=== PATIENT | female | born 2000 | race Caucasian/White ===

== ENCOUNTER 2021-10-10 11:38 | Emergency (ER) | payer BC ==
[2021-10-10 13:11] VITALS: BP 137/75
[2021-10-10] MEDS ORDERED: BUTALB/ACETAMINOPHEN/CAFFEINE TAB PO ONE (14:16)
[2021-10-10] MEDS ORDERED: ONDANSETRON 4 MG ODT TAB PO ONE (14:16)
--- NOTE | 2021-10-10 14:22 | Emergency Department Report ---
ED Head Trauma HPI - General Chief complaint: Head Injury Stated complaint: CONCUSSION Time Seen by Provider: 10/10/21 14:09 Source: patient Mode of arrival: Ambulatory Limitations: No Limitations - History of Present Illness Initial comments: Patient is a 21-year-old female presents emergency room with complaints of head injury that occurred 3 days ago. Patient reports that she was out drinking at the bars and was intoxicated. She reports that she was walking home with her friend and states that she hit her head against a brick wall. She is unsure if she lost consciousness. She states since then she has been having intermittent headaches. She has associated nausea and photophobia. She states her vision feels slightly blurry but she is still able to see. She states that she has bruising to her right knee but has no difficulty in moving the knee and is ambulating without difficulty. She denies any other injury. She denies any numbness, weakness, bowel or bladder incontinence, speech disturbance, gait disturbance. No past medical history. Allergy to estradiol levonorgestrel. She is currently on her menstrual cycle. - Related Data Previous Rx's Medication Instructions Recorded Last Taken Type Butalb/Acetaminophen/Caffeine 1 cap PO Q8HR PRN #12 cap 10/10/21 Unknown Rx [Fioricet 50-300-40 mg CAP] Ondansetron [Zofran Odt] 4 mg PO Q8HR PRN #12 tab.rapdis 10/10/21 Unknown Rx Allergies/Adverse reactions: Allergies Allergy/AdvReac Type Severity Reaction Status Date / Time ethinyl estradiol AdvReac Hives Verified 10/10/21 13:11 [From Lutera (28)] levonorgestrel AdvReac Hives Verified 10/10/21 13:11 [From Lutera (28)] ED Review of Systems ROS: Stated complaint: CONCUSSION Other details as noted in HPI Comment: All other systems reviewed and negative ED Past Medical Hx - Medications Home Medications: Home Medications Medication Instructions Recorded Confirmed Last Taken Type Butalb/Acetaminophen/Caffeine 1 cap PO Q8HR PRN #12 cap 10/10/21 Unknown Rx [Fioricet 50-300-40 mg CAP] Ondansetron [Zofran Odt] 4 mg PO Q8HR PRN #12 tab.rapdis 10/10/21 Unknown Rx ED Physical Exam - General Limitations: No Limitations General appearance: alert, in no apparent distress - Head Head exam: Present: other (two abrasions with mild edema present to the frontal forehead, no bleeding, no signs of infection, no skull or facial bony ttp) - Eye Eye exam: Present: normal appearance, PERRL, EOMI. Absent: periorbital swelling, periorbital tenderness - ENT ENT exam: Present: mucous membranes moist - Neck Neck exam: Present: normal inspection, full ROM. Absent: tenderness, meningismus - Respiratory Respiratory exam: Present: normal lung sounds bilaterally. Absent: respiratory distress, wheezes, rales, rhonchi, stridor, chest wall tenderness, accessory muscle use, decreased breath sounds, prolonged expiratory - Cardiovascular Cardiovascular Exam: Present: regular rate, normal rhythm, normal heart sounds. Absent: systolic murmur, diastolic murmur, rubs, gallop - Extremities Exam Extremities exam: Present: other (mild ecchymosis to the right anterior knee, FROM of the RLE, no deformity, no bony ttp, neurovascularly intact) - Neurological Exam Neurological exam: Present: alert, oriented X3, CN II-XII intact, normal gait, other (normal finger to nose, normal heel to tay, 5/5 muscle strength in the BUE/BLE, sensation intact throughout, no pronator drift, no facial asymmetry, no focal neuro deficit). Absent: motor sensory deficit - Psychiatric Psychiatric exam: Present: normal affect, normal mood - Skin Skin exam: Present: warm, dry, intact ED Course Vital Signs 10/10/21 10/10/21 13:06 14:50 Temperature 98 F Pulse Rate 98 H Respiratory 18 16 Rate Blood Pressure 137/75 [Left] O2 Sat by Pulse 100 Oximetry - Radiology Data Radiology results: report reviewed Ordering Physician: BERNADINE WARREN Date of Service: 10/10/21 Procedure(s): CT head/brain wo con Accession Number(s): [id number] cc: BERNADINE WARREN . CT BRAIN: 10/10/2021 INDICATION / CLINICAL INFORMATION: Trauma. COMPARISON: None available. FINDINGS: BRAIN/INTRACRANIAL STRUCTURES: Unenhanced CT images of the brain demonstrate no evidence of acute intracranial abnormality. Ventricles and sulci are normal in size and shape. There is no evidence of hemorrhage or mass. There are no abnormal extra-axial fluid collections. EXTRACRANIAL STRUCTURES: Unremarkable. IMPRESSION: Negative unenhanced CT of the brain. All CT scans at this location are performed using dose reduction to ALARA by means of automated exposure control. Signer Name: Jeffy Hess MD Signed: 10/10/2021 2:49 PM Workstation Name: [id number] Transcribed By: SVETLANA Dictated By: Jeffy Hess MD Electronically Authenticated By: Jeffy Hess MD Signed Date/Time: 10/10/211448 DD/ 47 TD/TT: - Medical Decision Making Patient is a 21-year-old female presents emergency room with complaints of head injury that occurred 3 days ago. Patient reports that she was out drinking at the bars and was intoxicated. She reports that she was walking home with her friend and states that she hit her head against a brick wall. She is unsure if she lost consciousness. She states since then she has been having intermittent headaches. She has associated nausea and photophobia. She states her vision feels slightly blurry but she is still able to see. She states that she has bruising to her right knee but has no difficulty in moving the knee and is ambulating without difficulty. She denies any other injury. She denies any numbness, weakness, bowel or bladder incontinence, speech disturbance, gait disturbance. No past medical history. Allergy to estradiol levonorgestrel. She is currently on her menstrual cycle. Vitals are stable. On exam two abrasions with mild edema present to the frontal forehead, no bleeding, no signs of infection, no skull or facial bony ttp, no raccoon eyes, no sheppard signs, no focal neuro deficits. CT head without contrast Negative unenhanced CT of the brain. This could be related to mild concussion. Patient symptoms improved with medication administration in the ER. Advised patient to not engage in contact sports and to decrease her screen time. Patient will be referred to her primary care doctor and neurology. Advised patient Please take medication as prescribed as needed. Increase your water intake. Decrease your screen time. Avoid contact sports. follow-up with your primary care doctor. Follow-up with a neurologist. Return to emergency room for any new or symptoms. Critical care attestation.: If time is entered above; I have spent that time in minutes in the direct care of this critically ill patient, excluding procedure time. ED Disposition Clinical Impression: Head injury Qualifiers: Encounter type: initial encounter Qualified Code(s): S09.90XA - Unspecified injury of head, initial encounter Disposition: HOME / SELF CARE / HOMELESS Is pt being admited?: No Does the pt Need Aspirin: No Condition: Stable Instructions: Concussion, Adult Additional Instructions: Please take medication as prescribed as needed. Increase your water intake. Decrease your screen time. Avoid contact sports. follow-up with your primary care doctor. Follow-up with a neurologist. Return to emergency room for any new or symptoms. Prescriptions: Butalb/Acetaminophen/Caffeine [Fioricet 50-300-40 mg CAP] 1 cap PO Q8HR PRN #12 cap PRN Reason: headache Ondansetron [Zofran Odt] 4 mg PO Q8HR PRN #12 tab.rapdis PRN Reason: nausea/vomiting Referrals: KALLIE BRO [Other] - 3-5 Days AUSTIN GIVENS MD [Referring] - 3-5 Days ROMMEL WHELEER MD [Staff Physician] - 3-5 Days Forms: Work/School Release Form(ED) Time of Disposition: 15:10 Print Language: HUNGARIAN
--- NOTE | 2021-10-10 14:54 | Cat Scan Report ---
. CT BRAIN: 10/10/2021 INDICATION / CLINICAL INFORMATION: Trauma. COMPARISON: None available. FINDINGS: BRAIN/INTRACRANIAL STRUCTURES: Unenhanced CT images of the brain demonstrate no evidence of acute int racranial abnormality. Ventricles and sulci are normal in size and shape. There is no evidence of hemorrhage or mass. There are no abnormal extra-axial fluid collections. EXTRACRANIAL STRUCTURES: Unremarkable. IMPRESSION: Negative unenhanced CT of the brain. All CT scans at this location are performed using dose reduction to ALARA by means of automated expos ure control. Signer Name: Jeffy Hess MD Signed: 10/10/2021 2:49 PM Workstation Name: [id number]
== END 2021-10-10 15:41 | disposition home or self-care (01) ==
LOC: ED 11:38
DX: S09.90XA Unspecified injury of head, initial encounter (principal); X58.XXXA Exposure to other specified factors, initial encounter; Y93.89 Activity, other specified; Y92.89 Other specified places as the place of occurrence of the external cause; Y99.8 Other external cause status; Z88.8 Allergy status to other drugs, medicaments and biological substances; Z88.5 Allergy status to narcotic agent
CPT/HCPCS: 70450; 99283; J3490; Q0162